=== PATIENT | female | born 1940 | race Caucasian/White ===

== ENCOUNTER 2022-11-08 22:49 | Inpatient (IN) | payer MEDICARE, SELFPAY ==
[2022-11-09] MEDS ORDERED: Nitroglycerin 0.4 MG TAB (25 Tab Bottle) SL PRN (01:42)
[2022-11-09 02:29] VITALS: BMI 26.3
[2022-11-09 04:30] LABS: #Basophils 0.1 10x3/uL (0.0-0.2); #Eosinphils 0.1 10x3/uL (0.0-0.5); #Monocytes 0.8 10x3/uL (0.0-1.1); #Neutrophils 7.9 10x3/uL (1.5-8.4); %Basophils 0.5 % (0.0-2.0); %Eosinophils 0.7 % (0.0-6.0); %Lymphocytes 14.8 % (18.0-47.0); %Neutrophils 75.4 % (40.0-75.0); Hemoglobin 13.4 g/dL (12.0-15.5); Mean Corpuscular HGB CONC 33.5 g/dL (32.0-36.0); Mean Corpuscular Hemoglobin 31.5 pg (27.0-33.0); Mean Corpuscular Volume 94.1 fl (81.6-98.3); Mean Platelet Volume 11.1 fl (7.4-10.4); Platelet Count 153 10x3/uL (150-450); RBC Distribution Width 14.9 % (11.5-14.5); Red Blood Cell (RBC) Count 4.25 10x6/uL (3.90-5.03); White Blood Cell (WBC) Count 10.5 10x3/uL (3.5-10.5)
[2022-11-09 04:37] LABS: Anion Gap 14 mmol/L (10-20); BUN (Urea Nitrogen) 11 mg/dL (9.8-20.1); Calc. Creatinine Clearance 50 mL/min (70-130); Calcium 8.7 mg/dL (7.8-10.44); Carbon Dioxide 24 mmol/L (23-31); Cardiac Risk 3.3 (Less than 4.5); Chloride 106 mmol/L (98-107); Cholesterol 168 mg/dl (< 200 Desired); Estimated GFR 69; Glucose 110 mg/dL (83-110); HDL Cholesterol 51 mg/dL (>60 Neg Risk); LDL Cholesterol, Calculated 102 mg/dL; Magnesium 1.5 mg/dL (1.6-2.6); Potassium 4.1 mmol/L (3.5-5.1); Sodium 140 mmol/L (136-145); Triglycerides 75 mg/dL (Less than 150)
[2022-11-09] MEDS ORDERED: Hydrochlorothiazide 25 MG TAB PO SCH (09:00)
[2022-11-09] MEDS: Losartan Potassium 50 MG TAB PO SCH (09:36)
[2022-11-09] MEDS: Aspirin 81 mg Enteric Coated Tablet PO SCH (09:36)
[2022-11-09] MEDS: Acetaminophen 325 MG TAB PO PRN (10:38)
[2022-11-09 17:21] LABS: Hemoglobin A1c 6.4 % (4.0-6.0)
[2022-11-09 17:50] LABS: Bilirubin Neg (Negative); Blood, Urine 10 (Negative); Clarity Clear (Clear); Glucose, Urine (Dipstick) >=1000 mg/dL (Negative); Ketone, Urine 15 mg/dL (Negative); Leukocyte 500 (Negative); Nitrite Negative (Negative); Protein, Urine (Dipstick) 30 mg/dl (Neg-Trace); Specific Gravity, Urine 1.005 (1.005-1.030); Urobilinogen Normal mg/dL (Less than 2)
[2022-11-09 18:16] LABS: CAUTI Indications for Culture Alt mental st,lethar; RBC/HPF 0-3 HPF (0-3)
[2022-11-09 18:17] LABS: Bacteria/HPF 1+ HPF (None Seen); Yeast-Budding 1+ HPF (None Seen)
[2022-11-09 18:18] LABS: Mucous/LPF 1+ LPF (<2+)
[2022-11-09 18:21] LABS: Urine Culture Reflex Yes Yes
[2022-11-09] MEDS ORDERED: Amiodarone 200 MG TAB PO SCH (21:00)
[2022-11-09] MEDS ORDERED: Pravastatin Sodium 20 MG TAB PO SCH (21:00)
[2022-11-09] MEDS ORDERED: Non-Formulary Medication 1 EACH (Pravastatin Sodium [Pravastatin Sodium] 80 MG Tablet) PO SCH (21:00)
[2022-11-09] MEDS ORDERED: cefTRIAXone Sodium 1,000 MG in Syringe 0 ML IVPB SCH (21:00)
[2022-11-09] MEDS: cefTRIAXone\\ROCEPHIN 1 GM in Sodium Chloride 0.9% 100 ML IVPB SCH (21:17)
[2022-11-09] MEDS: Gabapentin 100 MG CAP PO SCH (21:18)
[2022-11-09] MEDS: traMADol HCl 50 MG TAB PO SCH (21:19)
[2022-11-09] MEDS ORDERED: cloNIDine 0.1 MG TAB PO SCH (22:30)
[2022-11-10 05:02] LABS: #Basophils 0.1 10x3/uL (0.0-0.2); #Monocytes 0.6 10x3/uL (0.0-1.1); #Neutrophils 7.4 10x3/uL (1.5-8.4); %Basophils 0.5 % (0.0-2.0); %Eosinophils 0.4 % (0.0-6.0); %Lymphocytes 14.7 % (18.0-47.0); %Neutrophils 77.9 % (40.0-75.0); Hematocrit 38.8 % (34.9-44.5); Hemoglobin 13.2 g/dL (12.0-15.5); Mean Corpuscular Hemoglobin 31.6 pg (27.0-33.0); Mean Corpuscular Volume 92.8 fl (81.6-98.3); Platelet Count 153 10x3/uL (150-450); RBC Distribution Width 14.6 % (11.5-14.5); Red Blood Cell (RBC) Count 4.18 10x6/uL (3.90-5.03); White Blood Cell (WBC) Count 9.5 10x3/uL (3.5-10.5)
[2022-11-10 05:18] LABS: Anion Gap 17 mmol/L (10-20); BUN (Urea Nitrogen) 12 mg/dL (9.8-20.1); Calc. Creatinine Clearance 49 mL/min (70-130); Calcium 8.6 mg/dL (7.8-10.44); Carbon Dioxide 22 mmol/L (23-31); Chloride 103 mmol/L (98-107); Estimated GFR 68; Glucose 140 mg/dL (83-110); Potassium 3.5 mmol/L (3.5-5.1); Sodium 138 mmol/L (136-145)
[2022-11-10] MEDS: Levothyroxine Sodium 100 MCG TAB PO SCH (06:35)
[2022-11-10] MEDS: Empagliflozin 25 MG TAB PO SCH (09:00)
[2022-11-10] MEDS: Sertraline 25 MG TAB PO SCH (09:28)
[2022-11-10] MEDS: Pramipexole Di-HCl 0.25 MG TAB PO SCH (09:28)
[2022-11-10] MEDS: Hydrochlorothiazide 25 MG TAB PO SCH (09:32)
[2022-11-10] MEDS: glipiZIDE 5 MG TAB PO SCH (09:32)
[2022-11-10] MEDS: Aspirin 81 mg Enteric Coated Tablet PO SCH (09:32)
[2022-11-10] MEDS: Gabapentin 100 MG CAP PO SCH ×2 (09:32→20:46)
[2022-11-10] MEDS: Clopidogrel Bisulfate 75 MG TAB PO SCH (09:33)
[2022-11-10] MEDS: traMADol HCl 50 MG TAB PO SCH ×2 (09:33→20:47)
[2022-11-10] MEDS: Losartan Potassium 50 MG TAB PO SCH (09:34)
[2022-11-10] MEDS: Acetaminophen 325 MG TAB PO PRN (15:52)
[2022-11-10] MEDS: cefTRIAXone\\ROCEPHIN 1 GM in Sodium Chloride 0.9% 100 ML IVPB SCH (20:45)
[2022-11-11] MEDS ORDERED: hydrALAZINE 25 MG TAB PO SCH (01:15)
[2022-11-11] MEDS: Levothyroxine Sodium 100 MCG TAB PO SCH (05:53)
[2022-11-11 07:32] VITALS: BP 193/77; TEMP 98
[2022-11-11] MEDS: traMADol HCl 50 MG TAB PO SCH (08:58)
[2022-11-11] MEDS: Gabapentin 100 MG CAP PO SCH (08:59)
[2022-11-11] MEDS: Empagliflozin 25 MG TAB PO SCH (08:59)
[2022-11-11] MEDS: Clopidogrel Bisulfate 75 MG TAB PO SCH (08:59)
[2022-11-11] MEDS: Aspirin 81 mg Enteric Coated Tablet PO SCH (08:59)
[2022-11-11] MEDS: Hydrochlorothiazide 25 MG TAB PO SCH (08:59)
[2022-11-11] MEDS: Sertraline 25 MG TAB PO SCH (08:59)
[2022-11-11] MEDS: glipiZIDE 5 MG TAB PO SCH (08:59)
[2022-11-11] MEDS: Losartan Potassium 50 MG TAB PO SCH (09:01)
[2022-11-11] MEDS: Pramipexole Di-HCl 0.25 MG TAB PO SCH (09:01)
== END 2022-11-11 10:08 | disposition home health service (06) | DRG 689 ==
LOC: CSHTELE 11-09 00:02 → OBSVTOIN 11-09 15:49
PROVIDERS: ADMIT Family Medicine; ATTEND Family Medicine
DX: N39.0 Urinary tract infection, site not specified (principal); G93.41 Metabolic encephalopathy; I25.10 Atherosclerotic heart disease of native coronary artery without angina pectoris; E11.22 Type 2 diabetes mellitus with diabetic chronic kidney disease; I12.9 Hypertensive chronic kidney disease with stage 1 through stage 4 chronic kidney disease, or unspecified chronic kidney disease; N18.30 Chronic kidney disease, stage 3 unspecified; G47.33 Obstructive sleep apnea (adult) (pediatric); E03.9 Hypothyroidism, unspecified; F41.9 Anxiety disorder, unspecified; K21.9 Gastro-esophageal reflux disease without esophagitis; E78.5 Hyperlipidemia, unspecified; R47.02 Dysphasia; R53.81 Other malaise; Z90.49 Acquired absence of other specified parts of digestive tract; Z90.710 Acquired absence of both cervix and uterus; Z79.899 Other long term (current) drug therapy; Z82.49 Family history of ischemic heart disease and other diseases of the circulatory system; Z88.8 Allergy status to other drugs, medicaments and biological substances; Z98.51 Tubal ligation status; Z95.2 Presence of prosthetic heart valve
CPT/HCPCS: 36415; 36416; 70551; 80048; 80061; 81001; 83036; 83735; 84439; 84443; 85025; 87086; 93005; 93010; 93306; 93880; J0696; J1650; J3490